=== PATIENT | male | born 1955 | race African-American/Black ===

== ENCOUNTER 2020-01-20 17:57 | Emergency (ER) | payer MEDICAID ==
[~2020-01-20] VITALS: Ht 160 cm; Wt 75.3 kg
[2020-01-20 18:05] VITALS: Ht 160 cm; Wt 75.3 kg
[2020-01-20 20:30] VITALS: BP 140/91
== END 2020-01-20 20:20 | disposition home or self-care (01) ==
LOC: ED 17:57
DX: M25.572 Pain in left ankle and joints of left foot (principal)
CPT/HCPCS: 82962